=== PATIENT | male | born 2000 | race Two or more races ===

== ENCOUNTER 2023-10-12 02:36 | Emergency (ER) | payer OTHER ==
[~2023-10-12] VITALS: Ht 170.2 cm; Wt 65.8 kg
[2023-10-12] MEDS: fentaNYL CITRATE 100 MCG/2 ML VL IV ONE (05:22)
[2023-10-12 05:51] LABS: Basophils # (auto) 0 10 ^3/uL (0-0.2); Basophils % (auto) 0.1 % (0.0-2.0); Eosinophils # (auto) 0 10 ^3/uL (0-0.8); Hematocrit 47.1 % (41.0-53.0); Hemoglobin 15.4 g/dL (13.5-17.5); Lymphocytes # (auto) 0.8 10 ^3/uL (0.4-5.4); Lymphocytes % (auto) 6.5 % (10.0-50.0); Mean Corpuscular Hemoglobin 29.6 pg (28.0-32.0); Mean Corpuscular Hgb Conc. 32.8 g/dL (32.0-36.0); Mean Corpuscular Volume 90.2 fL (80.0-100.0); Monocytes # (auto) 0.4 10 ^3/uL (0-1.3); Monocytes % (auto) 3.3 % (0.0-12.0); Neutrophils # (auto) 11.3 10 ^3/uL (1.6-8.6); Neutrophils % (auto) 90.1 % (37.0-80.0); Red Blood Cells 5.22 10^6/uL (4.5-5.90); Red Cell Distribution Width 12.4 % (11.8-14.3); White Blood Cell 12.6 10^3/uL (4.4-10.8)
[2023-10-12] MEDS: IOHEXOL 350 MG/ML 100ML IJ ONE (05:59)
[2023-10-12 06:03] LABS: INR 1.11 (0.9-1.15); Prothrombin Time 11.6 sec (9.3-11.8)
[2023-10-12 06:10] LABS: Alanine Aminotransferase 16 U/L (7-40); Albumin 4.8 g/dL (3.2-4.8); Alkaline Phosphatase 78 U/L (46-116); Anion Gap 10 (5-15); Aspartate Aminotransferase 22 U/L (13-40); BUN/Creatinine Ratio 11.6 (10.0-20.0); Blood Urea Nitrogen 10 mg/dL (9-23); Calcium 9.3 mg/dL (8.7-10.4); Carbon Dioxide 23 mmol/L (20-30); Chloride 98 mmol/L (98-107); Glucose 127 mg/dL (74-106); Potassium 3.8 mmol/L (3.5-5.1); Sodium 131 mmol/L (136-145)
[2023-10-12 06:11] LABS: Bilirubin, Total 0.6 mg/dL (0.2-1.0)
[2023-10-12 07:05] VITALS: BP 146/86; PULSE 125; TEMP 98; O2SAT 96
[2023-10-12 07:24] VITALS: RESP 18
== END 2023-10-12 06:04 | disposition short-term general hospital (02) ==
LOC: ER 02:41 → EEVIPCON 02:41 → ER 06:04
DX: S02.85XA Fracture of orbit, unspecified, initial encounter for closed fracture (principal); S63.124A Dislocation of interphalangeal joint of right thumb, initial encounter; S00.12XA Contusion of left eyelid and periocular area, initial encounter; W19.XXXA Unspecified fall, initial encounter; Y93.89 Activity, other specified; Y92.89 Other specified places as the place of occurrence of the external cause; Y99.8 Other external cause status
CPT/HCPCS: 36415; 70450; 70486; 71260; 72125; 73120; 74177; 80053; 83880; 85025; 85610; 85730; 96374; 99291; J3010; Q9967